=== PATIENT | female | born 1985 ===

== ENCOUNTER 2017-01-31 15:14 | Emergency (ER) | payer OTHER ==
[2017-01-31 15:36] VITALS: BP 128/82; PULSE 76; RESP 18; TEMP 97.9; O2SAT 99
--- NOTE | 2017-01-31 16:30 | C.PDOC ---
History Of Present Illness 31 yo female come in for evaluation of lower back pain/falnk pain gradually developed for past week associated with mild pain on urination for past few days. Otherwise, pt denies fever, chills, recent illness, sore throat, cough, CP , SOB, dyspnea, abd. pain, N/V/D, hematuria, vaginal irritation or discharges. Ambulate to ED for evaluation, not in any apparent distress. Time Seen by Provider: 01/31/17 15:37 Chief Complaint (Nursing): Back Pain History Per: Patient Past Medical History Reviewed: Historical Data, Nursing Documentation, Vital Signs Vital Signs: Last Vital Signs Temp 97.9 F 01/31/17 15:34 Pulse 76 01/31/17 15:34 Resp 18 01/31/17 15:34 BP 128/82 01/31/17 15:34 Pulse Ox 99 01/31/17 17:02 - Medical History PMH: Hypothyroidism Surgical History: Appendectomy Family History: States: No Known Family Hx - Social History Hx Alcohol Use: No Hx Substance Use: No Review Of Systems Except As Marked, All Systems Reviewed And Found Negative. Constitutional: Negative for: Fever, Chills ENT: Negative for: Ear Discharge, Nose Discharge, Throat Pain, Throat Swelling Cardiovascular: Negative for: Chest Pain, Palpitations Respiratory: Negative for: Cough, Shortness of Breath, Wheezing Gastrointestinal: Negative for: Nausea, Vomiting, Abdominal Pain Genitourinary: Positive for: Dysuria. Negative for: Frequency, Incontinence, Hematuria, Vaginal Discharge, Vaginal Bleeding Musculoskeletal: Positive for: Back Pain. Negative for: Neck Pain Skin: Negative for: Rash Neurological: Negative for: Weakness, Numbness, Altered Mental Status, Headache , Dizziness Physical Exam - Physical Exam Appears: Well, Non-toxic, No Acute Distress Skin: Normal Color, Warm, Dry, No Rash Head: Normacephalic Eye(s): bilateral: PERRL Nose: No Discharge Oral Mucosa: Moist, No Drooling Throat: No Erythema, No Exudate, No Drooling Neck: Trachea Midline, Supple Cardiovascular: Rhythm Regular Respiratory: No Decreased Breath Sounds, No Accessory Muscle Use, No Rales, No Rhonchi, No Stridor, No Wheezing Gastrointestinal/Abdominal: Soft, No Tenderness, No Distention, No Guarding Back: No CVA Tenderness, No Vertebral Tenderness, Paraspinal Tenderness ( diffuse lumbar, no midine tenderness.), Other (diffuse flank tenderness B/L) Pelvic: Vaginal Discharge (scant thick white), No Cervical Motion Tenderness, No Adnexal Tenderness Extremity: Normal ROM, No Deformity, No Swelling Neurological/Psych: Oriented x3, Normal Speech, Normal Motor, Normal Sensation, Normal Reflexes ED Course And Treatment O2 Sat by Pulse Oximetry: 99 Pulse Ox Interpretation: Normal Progress Note: On re-evaluation, pt is afebrile, hemodynamicaly stable. Non- toxic. Tolerate Po well in ED. ENT: no acute findings. Neck: SUpple. Lungs: CTA B/L, BS equal B/L. ABd: benign, (-) guarding, (-) rebound. Back: (-) CVA tenderness. UA results review and appears normal. Pt has clinical findings c/ w vaginitis candidal, flank pain. Pt advised. ref. to F/u with PMD, DERMATOLOGY NURSE PRACTITIONER in 2- 3 days for re-eval. return if any new changes. Disposition Counseled Patient/Family Regarding: Studies Performed, Diagnosis, Need For Followup, Rx Given - Disposition Referrals: [facility] [Outside] [facility] [Outside] Disposition: HOME/ ROUTINE Disposition Time: 17:02 Condition: STABLE Additional Instructions: LIGHT DUTY TO LOWER BACK TAKE MEDICATION PRESCRIBED FOLLOW UP WITH PMD, DERMATOLOGY NURSE PRACTITIONER IN 2-3 DAYS FOR RE-EVALUATION. RETURN TO ED IF ANY WORSENING OR NEW CHANGES. Prescriptions: Ibuprofen [Motrin Tab] 400 mg PO Q6 #20 tab Miconazole/Cleanser 17 On Wipe [Monistat 7 Combination Pack] 1 each VG HS #1 kit Instructions: Vulvovaginal Candidiasis (ED), Flank Pain (ED) Forms: [employer] (Frisian) Print Language: ROMANIAN - Clinical Impression Clinical Impression: Vulvovaginal candidiasis, Flank pain
[2017-01-31 16:51] LABS: RBC URINE 1 /hpf (0-3); URINE BACTERIA OCC (<OCC); URINE BILIRUBIN NEGATIVE (NEGATIVE); URINE BLOOD NEGATIVE (NEGATIVE); URINE COLOR Colorless (YELLOW); URINE GLUCOSE (UA) NORMAL (Normal); URINE KETONE NEGATIVE (NEGATIVE); URINE LEUKOCYTE ESTERASE NEG Leu/uL (Negative); URINE PROTEIN NEGATIVE (NEGATIVE); URINE UROBILINOGEN NORMAL mg/dL (0.2-1.0); WBC URINE < 1 /hpf (0-5)
== END 2017-01-31 17:54 | disposition home or self-care (01) ==
LOC: C.ER 15:14
DX: B37.3 Candidiasis of vulva and vagina (principal); R10.9 Unspecified abdominal pain

== ENCOUNTER 2017-04-19 16:02 | Emergency (ER) | payer OTHER ==
[2017-04-19 16:28] VITALS: BMI 29.2
[2017-04-19 16:31] VITALS: RESP 18; O2SAT 100
[2017-04-19 17:42] LABS: SQUAMOUS EPITHIAL 1 /hpf (0-5); URINE BILIRUBIN NEGATIVE (NEGATIVE); URINE BLOOD NEGATIVE (NEGATIVE); URINE CLARITY Clear (Clear); URINE COLOR Straw (YELLOW); URINE GLUCOSE (UA) NORMAL (Normal); URINE LEUKOCYTE ESTERASE NEG Leu/uL (Negative); URINE NITRATE NEGATIVE (NEGATIVE); URINE PROTEIN NEGATIVE (NEGATIVE); URINE UROBILINOGEN NORMAL mg/dL (0.2-1.0)
[2017-04-19 17:44] LABS: HCG,QUALITATIVE URINE NEGATIVE (NEGATIVE)
--- NOTE | 2017-04-19 18:20 | C.PDOC ---
History Of Present Illness 31 yr old female presents to the ER with complaints of lower back pain with dysuria for the past 3 days. Denies trauma, fever, chills, nausea, vomiting, abdominal pain, vaginal discharge, vaginal bleeding, weakness or numbness. Time Seen by Provider: 04/19/17 16:51 Chief Complaint (Nursing): Back Pain History Per: Patient History/Exam Limitations: no limitations Onset/Duration Of Symptoms: Days (3) Past Medical History Reviewed: Historical Data, Nursing Documentation, Vital Signs Vital Signs: Last Vital Signs Temp 98.3 F 04/19/17 16:28 Pulse 75 04/19/17 16:28 Resp 18 04/19/17 16:28 BP 134/81 04/19/17 16:28 Pulse Ox 100 04/19/17 18:26 - Medical History PMH: Hypothyroidism Surgical History: Appendectomy Family History: States: No Known Family Hx - Social History Hx Alcohol Use: No Hx Substance Use: No - Immunization History Hx Tetanus Toxoid Vaccination: No Hx Influenza Vaccination: No Hx Pneumococcal Vaccination: No Review Of Systems Except As Marked, All Systems Reviewed And Found Negative. Constitutional: Negative for: Fever, Chills Gastrointestinal: Negative for: Nausea, Vomiting, Abdominal Pain Genitourinary: Positive for: Dysuria. Negative for: Vaginal Discharge, Vaginal Bleeding Musculoskeletal: Positive for: Back Pain (lower back pain) Neurological: Negative for: Weakness, Numbness Physical Exam - Physical Exam Appears: Well, Non-toxic, No Acute Distress Skin: Normal Color, Warm, Dry, No Rash Head: Normacephalic Eye(s): bilateral: PERRL Nose: No Flaring, No Discharge Oral Mucosa: Moist Tongue: Normal Appearing Lips: Normal Appearing Throat: No Erythema, No Drooling Neck: Trachea Midline, Supple Cardiovascular: Rhythm Regular Respiratory: No Decreased Breath Sounds, No Accessory Muscle Use, No Stridor, No Wheezing Gastrointestinal/Abdominal: Soft, No Tenderness, No Distention, No Guarding Back: No CVA Tenderness, No Vertebral Tenderness, Paraspinal Tenderness ( diffuse lumbar) Extremity: Normal ROM, No Pedal Edema, No Deformity Neurological/Psych: Oriented x3, Normal Speech, Normal Motor, Normal Sensation, Normal Reflexes ED Course And Treatment O2 Sat by Pulse Oximetry: 100 (RA) Pulse Ox Interpretation: Normal () Progress Note: On re-evaluation, pt is afebrile, hemodynamicaly stable. Non- toxic. Ambulatory in Ed with stable gait. PulsEOx 100% RA. ENT: no acute findings. neck: Supple, (-) meningeal sign. Lungs: CTA B/L, BS equal B/L. Abd : benign. back: (-) CVA tenderness. neuorlogicaly intact. UA results review and appears normal. Pt has clinical findings c/w lumbar strain. Pt advised. re.f to F/U with PMD in 2-3 days for re-eavl. return if any new changes. Medical Decision Making Medical Decision Making: PLAN: * HCG * Urinalysis * Tramadol Po Disposition Counseled Patient/Family Regarding: Studies Performed, Diagnosis, Need For Followup, Rx Given - Disposition Referrals: [facility] [Outside] Disposition: HOME/ ROUTINE Disposition Time: 18:01 Condition: STABLE Additional Instructions: LIGHT DUTY TO LOWER BACK AREA TAKE MEDICATION PRESCRIBED FOLLOW UP WITH PMD IN 2-3 DAYS FOR RE-EVALUATION. RETURN TO ED IF ANY WORSENING OR NEW CHANGES. Prescriptions: Ibuprofen [Motrin] 1 tab PO TID PRN #30 tab PRN Reason: Pain Methocarbamol [Robaxin] 500 mg PO TID #14 tab traMADol [Ultram] 50 mg PO TID #7 tab Instructions: Back Pain (ED) Forms: [email or web address] (Mauritanian) Print Language: YI - Clinical Impression Clinical Impression: Low back pain - PA / CIVIL ENGINEER'S AIDE / Resident Statement MD/DO has reviewed & agrees with the documentation as recorded. - Scribe Statement The provider has reviewed the documentation as recorded by the Scribe Teresa Denton All medical record entries made by the Jose Ribwil were at my direction and personally dictated by me. I have reviewed the chart and agree that the record accurately reflects my personal performance of the history, physical exam, medical decision making, and the department course for this patient. I have also personally directed, reviewed, and agree with the discharge instructions and disposition.
[2017-04-19 18:50] VITALS: BP 124/73; PULSE 68; TEMP 98.9
== END 2017-04-19 18:40 | disposition home or self-care (01) ==
LOC: C.ER 16:02
DX: M54.5 Low back pain (principal)

== ENCOUNTER 2017-08-04 20:22 | Emergency (ER) | payer OTHER ==
[2017-08-04 20:23] VITALS: BMI 29.2
[2017-08-04 20:34] VITALS: PULSE 84; RESP 20
--- NOTE | 2017-08-04 21:28 | C.PDOC ---
History Of Present Illness 31 year old female presents to the ED for evaluation of a "pins and needles" like sensation to her feet associated with debilitating anxiety. Patient reports she has been experiencing these symptoms occasionally over the past 6 months since she began her evaluations for uterine fibroids. Patient underwent extensive radiology of her spine includeing lab testing, pelvic ultrasound and pelvic MRI earlier this week. All studies produced negative results. Patient's , who is present at bedside, states patient has been experiencing anxiety and delusions concerning her health for the past 6 months. Patient denies psychiatric history. Patient states her symptoms usually improve with yoga and drinking water with lemon, which she stopped 6 months ago. Patient denies fever, chills. Time Seen by Provider: 08/04/17 20:44 Chief Complaint (Nursing): Medical Clearance History Per: Patient, Family History/Exam Limitations: no limitations Onset/Duration Of Symptoms: Days Current Symptoms Are (Timing): Still Present Additional History Per: Patient, Family Past Medical History Reviewed: Historical Data, Nursing Documentation, Vital Signs Vital Signs: Last Vital Signs Temp 98.2 F 08/04/17 21:37 Pulse 84 08/04/17 21:37 Resp 20 08/04/17 21:37 BP 142/87 08/04/17 21:37 Pulse Ox 99 08/04/17 22:50 - Medical History PMH: Hypothyroidism Surgical History: Appendectomy Family History: States: Unknown Family Hx - Social History Hx Alcohol Use: No Hx Substance Use: No - Immunization History Hx Tetanus Toxoid Vaccination: No Hx Influenza Vaccination: No Hx Pneumococcal Vaccination: No Review Of Systems Constitutional: Negative for: Fever, Chills Neurological: Positive for: Other (pins and needles sensation to feet ) Psych: Positive for: Anxiety Physical Exam - Physical Exam Appears: Non-toxic, No Acute Distress, Other (anxious, delusional, poor insight , bizarre) Skin: Normal Color, Warm, Dry Head: Atraumatic, Normacephalic Eye(s): bilateral: Normal Inspection Oral Mucosa: Moist Neck: Supple Chest: Symmetrical, No Deformity, No Tenderness Cardiovascular: Rhythm Regular, No Murmur Respiratory: Normal Breath Sounds, No Rales, No Rhonchi, No Wheezing Extremity: Normal ROM, Capillary Refill (less than 2 seconds ) Neurological/Psych: Oriented x3 ED Course And Treatment O2 Sat by Pulse Oximetry: 99 (on RA ) Pulse Ox Interpretation: Normal Medical Decision Making Medical Decision Making: extensive h/o evals with associated anxiety and poor insight over past 6 months debilitating anxiety and delusional that she has some underlying severe illness though extensive radiology and physical exam findings normal MRI of pelvis today for h/o Uterine Fibroids (???) with normal findings and normal abd exam today labs and UA/preg wnl 07/31 defer repeat labs pt feels better when drinking tea with lemon and was asymptomatic when doing yoga daily (which she left about 6 months ago due to billing issues.) Extensive 1/2 hour discussion @ bedside to continue Yoga daily, drink water with lemon regularly, and to consider hysterectomy (as offered by OFFICE RENTAL CLERK) if no longer going to parent more children. Poor insight, passive and poor eye contact. normal exam. pins and needles feelings of feet resolved with our discussion, offering psychiatric etiology Consider stress induced schizophrenia developing in this 31F, (delusional, flat affect, poor insight, significant decline in psych competence in past 6 months. ? bimodal distribution and the stress of uterine fibroids evaluation may have been a causative stresser. Denies SI/HI- safe for d/c home with @ bedside. Encouraged to f/u @ outpatient psych as needed AFTER trying natural remedies for her anxiety after about 1 month Disposition Doctor Will See Patient In The: Office Counseled Patient/Family Regarding: Studies Performed, Diagnosis - Disposition Referrals: [facility] [Outside] [facility] [Outside] [facility] [Outside] [facility] [Outside] Disposition: HOME/ ROUTINE Disposition Time: 21:28 Condition: GOOD Additional Instructions: Sigue Yoga diario Sigue tomando agua con allen Camina mucho Susan Benadryl 25 mg en la noche para ayudarse dormir Sigue en las Clinic[facility] psychiatric[facility] hu necessario Llama al [facility]- ellos te ayudan buscar citas cuando es deficil ponerlos. NO gregressas con ningun medico por 1 semana. Instructions: Anxiety, Adult (DC) Forms: [employer] (Armenian) Print Language: GERMAN - Clinical Impression Clinical Impression: Anxiety - Scribe Statement The provider has reviewed the documentation as recorded by the Scribe (Odilia Nuñez) Provider Attestation: All medical record entries made by the Scribe were at my direction and personally dictated by me. I have reviewed the chart and agree that the record accurately reflects my personal performance of the history, physical exam, medical decision making, and the department course for this patient. I have also personally directed, reviewed, and agree with the discharge instructions and disposition.
[2017-08-04 21:39] VITALS: BP 142/87; TEMP 98.2
[2017-08-04 22:51] VITALS: O2SAT 99
== END 2017-08-04 21:37 | disposition home or self-care (01) ==
LOC: C.ER 20:22
DX: F41.9 Anxiety disorder, unspecified (principal); E03.9 Hypothyroidism, unspecified